=== PATIENT | female | born 1995 | race Caucasian/White ===

== ENCOUNTER → 2017-09-20 | Outpatient (CLI) | payer OTHER ==
[~2017-09-20] MED LIST: CLON0.5T3 PO; JNL12021 PO; SERT25TA PO
--- NOTE | 2017-09-20 15:24 | MAMMOGRAPHY REPORT ---
ULTRASOUND OF RIGHT BREAST: 09/20/2017 CLINICAL HISTORY: 22-year-old woman presents with an increasing right axillary lump that she has noti mark for approximately 3 years. She also reports it is painful. No skin erythema or thickening. No nipple discharge. No family history of breast cancer. She describes the lump as the size of a small grape. COMPARISON: Comparison is made to exams dated: 12/21/2011 mammogram, 07/27/2015 mammogram, and 015 mammogram. FINDINGS: Targeted ultrasound was performed in the right axilla in the area of lump pointed out by t he patient. On palpation, there is a smooth ovoid tissue without a firm or discrete mass identified by myself. On ultrasound, there is mixed echogenicity tissue that has the appearance of accessory br east tissue. No underlying solid or cystic mass is seen. No suspicious lymphadenopathy, drainable f luid collection or focal skin thickening is identified. IMPRESSION: ACR BI-RADS CATEGORY 2: BENIGN The painful palpable lump in the right axilla likely represents accessory breast tissue. No encapsul ated isoechoic lipoma is definitely identified. No suspicious lymphadenopathy, suspicious solid mass or drainable fluid collection is identified. Continued clinical follow-up is recommended. These results and recommendations were discussed with the patient at the time of the exam. Tonia La M.D. ay/:09/20/2017 13:29:56 Clinical Physician Assistant: Dr. Tonia La, [facility] letter sent: Normal 1/2 BI-RADS Code: ACR BI-RADS Category 2: Benign
== END ==
LOC: C.MAMM 13:03
PROVIDERS: ATTEND Surgery
DX: N63.31 Unspecified lump in axillary tail of the right breast (principal)

== ENCOUNTER → 2017-10-26 | Outpatient (CLI) | payer OTHER ==
--- NOTE | 2017-10-26 08:35 | DIAGNOSTIC IMAGING REPORT ---
SINUS CT CT DOSE: 509.60 mGy.cm HISTORY: CHRONIC SINUSITIS TECHNIQUE: Multiaxial CT images of the paranasal sinuses were performed and reformatted in the coronal plane without the use of contrast. A dose lowering technique was utilized adhering to the principles of ALARA. COMPARISON: Head CT 05/15/2016. FINDINGS: There is a tiny retention cyst seen within the left sphenoid sinus and right max a sinus. These are subcentimeter in size. Otherwise, the remaining frontal sinuses, ethmoid air cells, sphenoid sinuses, and maxillary sinuses are clear. The mastoid air cells are clear. No fluid levels within the paranasal sinuses. Right nasal septal deviation. The visualized brain parenchyma is within normal limits. The orbits are unremarkable. IMPRESSION: 1. No significant sinus disease. No fluid levels within the paranasal sinuses. 2. Right nasal septal deviation. Electronically signed by: Doroteo Gaviria M.D. 10/26/2017 8:34 AM Dictated Date/Time: 10/26/2017 8:28 AM
== END | disposition home or self-care (01) ==
LOC: C.CTS 08:16
PROVIDERS: ATTEND Otolaryngology
DX: J32.9 Chronic sinusitis, unspecified (principal); J34.2 Deviated nasal septum